=== PATIENT | female | born 1975 | race Caucasian/White ===

== ENCOUNTER 2022-05-29 09:36 | Outpatient (CLI) | payer OTHER | END 2022-05-29 09:37 | disposition home or self-care (01) | LOC: TBSIIMAG 09:36 | PROVIDERS: ATTEND Orthopaedic Surgery | DX: S83.511A Sprain of anterior cruciate ligament of right knee, initial encounter (principal); M25.461 Effusion, right knee; M23.91 Unspecified internal derangement of right knee; S83.411A Sprain of medial collateral ligament of right knee, initial encounter ==

== ENCOUNTER 2022-06-12 16:21 | Outpatient (CLI) | payer OTHER ==
[2022-06-12 17:03] LABS: #Basophils 0.1 10x3/uL (0.0-0.2); #Eosinphils 0.2 10x3/uL (0.0-0.5); #Monocytes 0.7 10x3/uL (0.0-1.1); #Neutrophils 5.2 10x3/uL (1.5-8.4); %Basophils 0.8 % (0.0-2.0); %Eosinophils 2.2 % (0.0-6.0); %Lymphocytes 21.2 % (18.0-47.0); %Monocytes 9.2 % (0.0-10.0); %Neutrophils 66.5 % (40.0-75.0); Hemoglobin 13.7 g/dL (12.0-15.5); Mean Corpuscular HGB CONC 31.9 g/dL (32.0-36.0); Mean Corpuscular Hemoglobin 28.1 pg (27.0-33.0); Mean Corpuscular Volume 88.1 fl (81.6-98.3); Mean Platelet Volume 10.3 fl (7.4-10.4); Platelet Count 289 10x3/uL (150-450); RBC Distribution Width 13.2 % (11.5-14.5); Red Blood Cell (RBC) Count 4.87 10x6/uL (3.90-5.03); White Blood Cell (WBC) Count 7.8 10x3/uL (3.5-10.5)
[2022-06-12 17:18] LABS: Anion Gap 14 mmol/L (10-20); BUN (Urea Nitrogen) 12 mg/dL (7.0-18.7); Calc. Creatinine Clearance 0 mL/min (70-130); Calcium 9.2 mg/dL (7.8-10.44); Carbon Dioxide 22 mmol/L (22-29); Chloride 106 mmol/L (98-107); Estimated GFR 93; Glucose 95 mg/dL (70-105); Potassium 4.1 mmol/L (3.5-5.1); Sodium 138 mmol/L (136-145)
== END 2022-06-12 16:22 | disposition home or self-care (01) ==
LOC: LABBT 16:21
PROVIDERS: ATTEND Orthopaedic Surgery
DX: Z01.812 Encounter for preprocedural laboratory examination (principal)
CPT/HCPCS: 80048; 85025

== ENCOUNTER 2022-06-14 05:44 | Observation (INO) | payer OTHER ==
[2022-06-12 15:40] VITALS: BMI 30.1
[2022-06-14] MEDS ORDERED: Midazolam HCl 2 mg/2 ml Vial ONE (06:40)
[2022-06-14] MEDS ORDERED: Fentanyl 100 MCG/2 ML VIAL ONE ×4 (06:40→13:32)
[2022-06-14] MEDS ORDERED: EPINEPHrine 1 MG/ML AMP ONE (06:41)
[2022-06-14] MEDS ORDERED: Bupivacaine PF 0.5% 30 ML VIAL ONE (06:41)
[2022-06-14] MEDS ORDERED: Lidocaine 1% (PF) 30 ML VIAL ONE (06:41)
[2022-06-14] MEDS ORDERED: Sodium Chloride 0.9% 100 ML ONE (06:51)
[2022-06-14] MEDS ORDERED: CEFAZOLIN 2 GM VIAL ONE (06:51)
[2022-06-14 07:07] LABS: SARS-CoV-2 NAA Rapid Test Not Detected (NotDetected)
[2022-06-14] MEDS ORDERED: Vancomycin 1 GM/200 ML (FROZEN) BAG ONE (07:08)
[2022-06-14] MEDS ORDERED: fentaNYL PF 100 MCG/2 ML SYRINGE ONE (07:20)
[2022-06-14] MEDS ORDERED: PROPOFOL 200 MG/20 ML VIAL ONE (07:26)
[2022-06-14] MEDS ORDERED: Ondansetron PF 4 MG/2 ML Vial ONE ×2 (07:26→09:39)
[2022-06-14] MEDS ORDERED: Dexamethasone 20 MG/5 ML VIAL ONE (07:26)
[2022-06-14] MEDS ORDERED: traMADol HCl 50 MG TAB PO PRN ×3 (07:27→07:45)
[2022-06-14] MEDS ORDERED: Bisacodyl 10 MG SUPP PR PRN (07:27)
[2022-06-14] MEDS ORDERED: Ondansetron PF 4 MG/2 ML Vial IVP PRN ×2 (07:27→07:45)
[2022-06-14] MEDS ORDERED: Milk Of Magnesia 30 ML UDCUP PO PRN (07:27)
[2022-06-14] MEDS ORDERED: HYDROcodone/Acetaminophen 7.5/325 mg Tablet PO PRN ×2 (07:27)
[2022-06-14] MEDS ORDERED: Acetaminophen 500 MG TAB PO PRN (07:27)
[2022-06-14] MEDS ORDERED: diphenhydrAMINE 50 MG CAP PO PRN (07:27)
[2022-06-14] MEDS ORDERED: Methocarbamol 500 MG TAB PO PRN (07:27)
[2022-06-14] MEDS ORDERED: Fentanyl 100 MCG/2 ML VIAL IV PRN (07:43)
[2022-06-14] MEDS ORDERED: HYDROcodone/Acetaminophen 10/325 mg Tablet PO PRN ×2 (07:45)
[2022-06-14] MEDS ORDERED: Zolpidem Tartrate 5 MG TAB PO PRN (07:45)
[2022-06-14] MEDS ORDERED: Ropivacaine 0.2% 550 ML 550 ML NERVE BLCK SCH (07:45)
[2022-06-14] MEDS ORDERED: Promethazine HCl 25 MG/ML VIAL IM PRN (07:45)
[2022-06-14] MEDS ORDERED: PRASTERONE PO SCH ×2 (09:00)
[2022-06-14] MEDS ORDERED: Promethazine HCl 25 MG/ML VIAL ONE (10:15)
[2022-06-14] MEDS ORDERED: Haloperidol Lactate 5 MG/ML VIAL ONE (10:41)
[2022-06-14] MEDS ORDERED: Scopolamine 1.5 mg/72 hour Patch ONE (10:42)
[2022-06-14] MEDS ORDERED: Ropivacaine 0.5% HCl/PF (150 MG/30 ML VIAL) ONE (11:10)
[2022-06-14] MEDS ORDERED: Ketorolac Tromethamine 30 MG/ML VIAL IVP SCH (12:00)
[2022-06-14] MEDS: Aspirin Chewable 81 MG TAB PO SCH (14:17)
[2022-06-14] MEDS: Dextrose 5 %-0.45 % NaCl 1,000 ML IV SCH ×2 (14:17→18:03)
[2022-06-14] MEDS: Ketorolac Tromethamine 30 MG/ML VIAL IVP SCH ×3 (14:18→23:09)
[2022-06-14] MEDS: Famotidine 20 MG TAB PO SCH ×2 (14:18→21:24)
[2022-06-14] MEDS: CEFAZOLIN 2 GM in Sodium Chloride 0.9% 100 ML IVPB SCH ×2 (14:26→21:24)
[2022-06-14] MEDS: Vancomycin 1 GM in Premix Bag 1 BAG IVPB SCH (18:33)
[2022-06-14] MEDS ORDERED: Progesterone,Micronized 100 MG CAP PO SCH ×2 (21:00)
[2022-06-15] MEDS: Dextrose 5 %-0.45 % NaCl 1,000 ML IV SCH (02:36)
[2022-06-15] MEDS: Vancomycin 1 GM in Premix Bag 1 BAG IVPB SCH (05:40)
[2022-06-15] MEDS: Ketorolac Tromethamine 30 MG/ML VIAL IVP SCH (05:41)
[2022-06-15] MEDS: Famotidine 20 MG TAB PO SCH (08:54)
[2022-06-15] MEDS: Aspirin Chewable 81 MG TAB PO SCH (08:54)
[2022-06-15 11:39] VITALS: BP 115/75; TEMP 97.9
== END 2022-06-15 12:15 | disposition home or self-care (01) ==
LOC: SDC 05:44 → SURG A 07:27
PROVIDERS: ADMIT Orthopaedic Surgery; ATTEND Orthopaedic Surgery
PROC: 0MRN47Z Replacement of Right Knee Bursa and Ligament with Autologous Tissue Substitute, Percutaneous Endoscopic Approach (ICD-10-PCS; principal; 2022-06-15)
DX: S83.511A Sprain of anterior cruciate ligament of right knee, initial encounter (principal); E66.9 Obesity, unspecified; Z68.30 Body mass index [BMI] 30.0-30.9, adult; Z79.899 Other long term (current) drug therapy; Z91.048 Other nonmedicinal substance allergy status; Z20.822 Contact with and (suspected) exposure to COVID-19; Y93.23 Activity, snow (alpine) (downhill) skiing, snowboarding, sledding, tobogganing and snow tubing
CPT/HCPCS: 96374; 96375; 96376; A4306; C1713; C1889; C1898; G0378; J0171; J1100; J1630; J1885; J2001; J2250; J2405; J2550; J2704; J2795; J3010; J3370-JW; J3490; S0020; U0002